=== PATIENT | female | born 1945 | race Caucasian/White ===

== ENCOUNTER → 2019-04-06 | Outpatient (CLI) | payer MEDICARE, OTHER ==
--- NOTE | 2019-04-07 09:41 | RAD ---
Examination: 1. Bilateral digital diagnostic mammogram. 2. Targeted right axillary ultrasound. INDICATION: 73-year-old woman due for mammographic screening presents with a palpable lump in her right axilla for the past 2 weeks. COMPARISON: None. This will serve as a new baseline. FINDINGS: CC and MLO views of both breasts were obtained with 2-D and 3-D technique with a BB marker identifying the area of palpable concern as reported by the patient, located in the right axilla. These show the breasts are almost entirely fatty replaced with no dominant mass, suspicious calcification or architectural distortion. The nipple area of complexes are unremarkable and there is no skin thickening. There is no mammographic correlate to the area of patient reported palpable concern with fatty axillary breast tissue that is marginally larger on the right than on the left. Targeted ultrasound of the right axilla and the patient's reported area of palpable concern revealed nothing but fatty subcutaneous tissue. No dominant mass or axillary adenopathy. No suspicious sonographic findings. IMPRESSION: Negative bilateral mammogram and right axillary ultrasound. Management of a palpable finding if one exists should be clinical with biopsy of any clinically suspicious findings. In the absence of a clinically suspicious findings, routine screening next due in one year is recommended. BI-RADS Category 1 Negative Patient entered into the reminder system with target due date for next mammogram.
== END | disposition home or self-care (01) ==
LOC: MAMMO 13:13
PROVIDERS: ATTEND Nurse Practitioner Family
DX: N63.10 Unspecified lump in the right breast, unspecified quadrant (principal); R92.8 Other abnormal and inconclusive findings on diagnostic imaging of breast
CPT/HCPCS: 76641; 77066; G0279; 77062